=== PATIENT | female | born 2000 | race Asian ===

== ENCOUNTER 2020-04-10 15:40 | Outpatient (CLI) | payer BC | END 2020-04-10 15:41 | disposition home or self-care (01) | LOC: LAB 15:40 | PROVIDERS: ATTEND Family Medicine | DX: Z20.828 Contact with and (suspected) exposure to other viral communicable diseases (principal) | CPT/HCPCS: 81599 ==

== ENCOUNTER 2020-04-19 15:53 | Outpatient (CLI) | payer BC | END 2020-04-19 15:54 | disposition home or self-care (01) | LOC: LAB 15:53 | PROVIDERS: ATTEND Family Medicine | DX: Z20.828 Contact with and (suspected) exposure to other viral communicable diseases (principal) ==